=== PATIENT | male | born 1970 | race Caucasian/White ===

== ENCOUNTER 2016-12-10 06:35 | Emergency (ER) | payer OTHER ==
[~2016-12-10] VITALS: Ht 177.8 cm; Wt 99.3 kg
[2016-12-10 06:36] VITALS: TEMP 36.8; O2SAT 97; Ht 177.8 cm; Wt 99.3 kg
[2016-12-10] MEDS ORDERED: SODIUM CHLORIDE 0.9% 1000ML 1,000 ML IV STA ×2 (06:59→08:29)
[2016-12-10] MEDS ORDERED: ONDANSETRON INJ 2 MG/ML 2 ML VIAL IV STA (06:59)
[2016-12-10] MEDS ORDERED: MoRPHine SULFATE 10 MG/ML CARP/VIAL IV STA ×2 (06:59→08:12)
[2016-12-10 07:24] LABS: BASO % 0.2 %; BASO ABS # 0.02 K/uL (0-0.2); COMPLETE YES; EOS % 1.2 %; HEMATOCRIT 42.5 % (42-52); IG% 0.3 %; LYMPH % 32.7 %; LYMPH ABS # 3.38 K/uL (1.2-3.4); MEAN CELL VOLUME 84.5 fL (80-100); MEAN CORPUSCULAR HEMOGLOBIN 31.2 pg (25-34); MEAN CORPUSCULAR HGB CONC 36.9 g/dl (32-36); MEAN PLATELET VOLUME 9.3 fL (7.4-10.4); MONO % 10.1 %; NEUT % 55.5 %; PLATELET COUNT 225 K/uL (130-400); RED BLOOD COUNT 5.03 M/uL (4.7-6.1); WHITE BLOOD COUNT 10.33 K/uL (4.8-10.8)
[2016-12-10 07:48] LABS: ALT/SGPT 62 U/L (12-78); AST/SGOT 39 U/L (15-37); BLOOD UREA NITROGEN 21 mg/dl (7-18); BUN/CREATININE RATIO 15.8 (10-20); CALCIUM 8.8 mg/dl (8.5-10.1); CARBON DIOXIDE 23 mmol/L (21-32); CHLORIDE 105 mmol/L (98-107); GLUCOSE 108 mg/dl (70-99); POTASSIUM 3.6 mmol/L (3.5-5.1); SODIUM 137 mmol/L (136-145)
[2016-12-10 07:51] LABS: ALKALINE PHOSPHATASE 83 U/L (45-117)
--- NOTE | 2016-12-10 08:10 | DIAGNOSTIC IMAGING REPORT ---
CT SCAN OF THE ABDOMEN AND PELVIS WITHOUT IV CONTRAST CLINICAL HISTORY: Left lower quadrant abdominal pain. COMPARISON STUDY: No priors. TECHNIQUE: CT scan of the abdomen and pelvis is performed from the lung bases to the proximal femora. Images are reviewed in the axial, sagittal, and coronal planes. IV contrast was not administered for this examination as per the referring clinician. A dose lowering technique was utilized adhering to the principles of ALARA. CT DOSE: 989.93 mGy.cm FINDINGS: Lung bases: The heart is normal in size and without pericardial effusion. The lung bases are clear. There is a tiny hiatal hernia. Liver: The unenhanced liver is normal in size, contour, and attenuation. There is no intrahepatic biliary ductal dilatation. Gallbladder: Unremarkable. Spleen: Normal in size and attenuation. Pancreas: The unenhanced pancreas is grossly unremarkable. Adrenal glands: Unremarkable. Kidneys: The unenhanced kidneys are normal in size size. There is a 3 mm obstructing calculus at the left vesicoureteral junction seen on image #397. This causes mild to moderate left-sided hydroureteronephrosis. There is associated left-sided perinephric and periureteric stranding as well as trace left-sided perinephric fluid. An additional 4 mm nonobstructing calculus is seen in the interpolar left kidney. There is a 5 mm nonobstructing right renal calculus. No right sciatica hydronephrosis is seen. There is no evidence of contour deforming renal mass lesion. Abdominal vasculature: The abdominal aorta is normal in course and caliber noting mild but age advanced atherosclerotic calcification. Bowel: The small bowel and colon are normal in course and caliber. The appendix is well-visualized and normal. Peritoneum: There is no intraperitoneal free air or abdominal ascites. There is a fat-containing umbilical hernia. Lymphadenopathy: None. Pelvic viscera: The bladder, prostate, and seminal vesicles are normal as visualized. There is a small fat-containing left inguinal hernia. Skeletal structures: No lytic or blastic lesions are seen. IMPRESSION: 1. There is a 3 mm obstructing calculus at the left vesicoureteral junction which causes mild to moderate left-sided hydroureteronephrosis. 2. Additional bilateral nonobstructing renal calculi as above. Electronically signed by: Rudolph Acuña M.D. 12/10/2016 8:08 AM Dictated Date/Time: 12/10/2016 8:04 AM
[2016-12-10] MEDS ORDERED: KETOROLAC TROMETHAMINE 30 MG/ML VIAL IV STA (08:12)
[2016-12-10 08:26] VITALS: PULSE 80
[2016-12-10 08:52] LABS: URINE APPEARANCE CLEAR (CLEAR); URINE BILIRUBIN NEG (NEG); URINE COLOR YELLOW; URINE EPITHELIAL CELL AUTO 0-5 /lpf (0-5); URINE NITRITE NEG (NEG); URINE SPECIFIC GRAVITY 1.023 (1.000-1.030); UROBILINOGEN NEG (NEG); ZZUR CULT IF INDIC CLEAN CATCH NO
[2016-12-10 08:53] LABS: MANUAL MICROSCOPIC REQUIRED? NO; REVIEW REQ? NO
[2016-12-10] MEDS ORDERED: TAMS0.4C38 PO (09:06)
[2016-12-10] MEDS ORDERED: OXYC1TAB3 PO (09:06)
[2016-12-10 10:17] VITALS: BP 155/90
--- NOTE | 2016-12-10 13:26 | EMERGENCY ROOM VISIT NOTE ---
History Report prepared by Shruthi: Klarissa Mcqueen Under the Supervision of: Dr. Armin Sands D.O. First contact with patient: 06:47 Chief Complaint: ABDOMINAL PAIN Stated Complaint: LEFT LOWER ABDOMINAL PAIN Nursing Triage Summary: Drove up from [place], got in at 2400. Woke at 0530 with sharp LLQ abdominal pain, non-radiating, severe. No diarrhea or vomiting, but nauseated. No recent illness. No dyspnea, lightheadedness, or dizziness. Normal BM's recently. History of Present Illness The patient is a 46 year old male who presents to the Emergency Room with complaints of constant LLQ abdominal pain for the past 1.5 hours. The patient is visiting the area from [place] and staying at [place]. He woke up at 5am with what he describes as "gas pains" in his LLQ. He tried to have a bowel movement but was unsuccessful. His pain began to worsen and he developed nausea. The patient called 911 and was brought to the ED by ambulance. He rates his current pain as a 9/10 in severity. The patient denies fevers, headache, cough, rhinorrhea, chest pain, vomiting, testicular pain, and urinary symptoms. He had a normal bowel movement yesterday. He has a history of kidney stones, but states that his current symptoms feel different from his previous kidney stones. Source of History: patient Onset: 1.5 hours [employer] Position: abdomen (LLQ) Symptom Intensity: 9/10 Timing: constant Associated Symptoms: + nausea, No fevers, No headache, No cough, No chest pain, No vomiting, No urinary symptoms Note: Pt denies rhinorrhea and testicular pain. Review of Systems See HPI for pertinent positives & negatives. A total of 10 systems reviewed and were otherwise negative. Past Medical & Surgical Medical Problems: (1) Kidney stones Family History No pertinent history stated. Social History Smoking Status: Never Smoker Marital Status: Current/Historical Medications Scheduled Tamsulosin Hcl (Flomax), 0.4 MG PO DAILY Scheduled PRN Oxycodone Immediate Rel Tab (Roxicodone Ir), 5 MG PO Q6H PRN for Pain Allergies Coded Allergies: No Known Allergies (Unverified , 12/10/16) Physical Exam Vital Signs Date Time Temp Pulse Resp B/P (MAP) Pulse Ox O2 Delivery O2 Flow Rate FiO2 12/10/16 10: 155/90 12/10/16 08:26 80 163/95 12/10/16 07:00 71 12/10/16 06:36 36.8 68 15 171/95 97 Room Air Physical Exam GENERAL: alert, sitting up in bed, well appearing, well nourished, moderate distress holding LLQ, non-toxic EYE EXAM: normal conjunctiva, PERRL and EOM's grossly intact OROPHARYNX: no exudate, no erythema, lips, buccal mucosa, and tongue normal and mucous membranes are moist NECK: supple, no nuchal rigidity, no adenopathy, non-tender LUNGS: Clear to auscultation. Normal chest wall mechanics HEART: no murmurs, S1 normal and S2 normal ABDOMEN: abdomen soft, faint tenderness in LLQ, normo-active bowel sounds, no masses, no rebound or guarding. BACK: Back is symmetrical on inspection and there is no deformity, no midline tenderness, no CVA tenderness. SKIN: no rashes and no bruising UPPER EXTREMITIES: upper extremities are grossly normal. LOWER EXTREMITIES: No pitting edema. NEURO EXAM: Normal sensorium, cranial nerves II-XII grossly intact, normal speech, no gross weakness of arms, no gross weakness of legs. Medical Decision & Procedures ER Provider Diagnostic Interpretation: Radiology results as stated below per my review and the radiologist's interpretation: CT SCAN OF THE ABDOMEN AND PELVIS WITHOUT IV CONTRAST CLINICAL HISTORY: Left lower quadrant abdominal pain. COMPARISON STUDY: No priors. TECHNIQUE: CT scan of the abdomen and pelvis is performed from the lung bases to the proximal femora. Images are reviewed in the axial, sagittal, and coronal planes. IV contrast was not administered for this examination as per the referring clinician. A dose lowering technique was utilized adhering to the principles of ALARA. CT DOSE: 989.93 mGy.cm FINDINGS: Lung bases: The heart is normal in size and without pericardial effusion. The lung bases are clear. There is a tiny hiatal hernia. Liver: The unenhanced liver is normal in size, contour, and attenuation. There is no intrahepatic biliary ductal dilatation. Gallbladder: Unremarkable. Spleen: Normal in size and attenuation. Pancreas: The unenhanced pancreas is grossly unremarkable. Adrenal glands: Unremarkable. Kidneys: The unenhanced kidneys are normal in size size. There is a 3 mm obstructing calculus at the left vesicoureteral junction seen on image #397. This causes mild to moderate left-sided hydroureteronephrosis. There is associated left-sided perinephric and periureteric stranding as well as trace left-sided perinephric fluid. An additional 4 mm nonobstructing calculus is seen in the interpolar left kidney. There is a 5 mm nonobstructing right renal calculus. No right sciatica hydronephrosis is seen. There is no evidence of contour deforming renal mass lesion. Abdominal vasculature: The abdominal aorta is normal in course and caliber noting mild but age advanced atherosclerotic calcification. Bowel: The small bowel and colon are normal in course and caliber. The appendix is well-visualized and normal. Peritoneum: There is no intraperitoneal free air or abdominal ascites. There is a fat-containing umbilical hernia. Lymphadenopathy: None. Pelvic viscera: The bladder, prostate, and seminal vesicles are normal as visualized. There is a small fat-containing left inguinal hernia. Skeletal structures: No lytic or blastic lesions are seen. IMPRESSION: 1. There is a 3 mm obstructing calculus at the left vesicoureteral junction which causes mild to moderate left-sided hydroureteronephrosis. 2. Additional bilateral nonobstructing renal calculi as above. Electronically signed by: Rudolph Acuña M.D. 12/10/2016 8:08 AM Dictated Date/Time: 12/10/2016 8:04 AM Laboratory Results 12/10/16 07:10 Red Blood Count 5.03, Mean Corpuscular Volume 84.5, Mean Corpuscular Hemoglobin 31.2, Mean Corpuscular Hemoglobin Concent 36.9, Mean Platelet Volume 9.3, Neutrophils (%) (Auto) 55.5, Lymphocytes (%) (Auto) 32.7, Monocytes (%) (Auto) 10.1, Eosinophils (%) (Auto) 1.2, Basophils (%) (Auto) 0.2, Neutrophils # (Auto ) 5.74, Lymphocytes # (Auto) 3.38, Monocytes # (Auto) 1.04, Eosinophils # (Auto ) 0.12, Basophils # (Auto) 0.02 12/10/16 07:10 Test 12/10/16 07:10 12/10/16 08:35 White Blood Count 10.33 K/uL (4.8-10.8) Red Blood Count 5.03 M/uL (4.7-6.1) Hemoglobin 15.7 g/dL (14.0-18.0) Hematocrit 42.5 % (42-52) Mean Corpuscular Volume 84.5 fL (80-100) Mean Corpuscular Hemoglobin 31.2 pg (25-34) Mean Corpuscular Hemoglobin Concent 36.9 g/dl (32-36) Platelet Count 225 K/uL (130-400) Mean Platelet Volume 9.3 fL (7.4-10.4) Neutrophils (%) (Auto) 55.5 % Lymphocytes (%) (Auto) 32.7 % Monocytes (%) (Auto) 10.1 % Eosinophils (%) (Auto) 1.2 % Basophils (%) (Auto) 0.2 % Neutrophils # (Auto) 5.74 K/uL (1.4-6.5) Lymphocytes # (Auto) 3.38 K/uL (1.2-3.4) Monocytes # (Auto) 1.04 K/uL (0.11-0.59) Eosinophils # (Auto) 0.12 K/uL (0-0.5) Basophils # (Auto) 0.02 K/uL (0-0.2) RDW Standard Deviation 37.2 fL (36.4-46.3) RDW Coefficient of Variation 12.2 % (11.5-14.5) Immature Granulocyte % (Auto) 0.3 % Immature Granulocyte # (Auto) 0.03 K/uL (0.00-0.02) Anion Gap 9.0 mmol/L (3-11) Est Creatinine Clear Calc Drug Dose 85.7 ml/min Estimated GFR () 76.9 Estimated GFR (Non- 66.4 BUN/Creatinine Ratio 15.8 (10-20) Calcium Level 8.8 mg/dl (8.5-10.1) Total Bilirubin 0.6 mg/dl (0.2-1) Direct Bilirubin < 0.1 mg/dl (0-0.2) Aspartate Amino Transf (AST/SGOT) 39 U/L (15-37) Alanine Aminotransferase (ALT/SGPT) 62 U/L (12-78) Alkaline Phosphatase 83 U/L (45-117) Total Protein 7.7 gm/dl (6.4-8.2) Albumin 4.1 gm/dl (3.4-5.0) Lipase 146 U/L (73-393) Urine Color YELLOW Urine Appearance CLEAR (CLEAR) Urine pH 6.0 (4.5-7.5) Urine Specific Stickney 1.023 (1.000-1.030) Urine Protein NEG (NEG) Urine Glucose (UA) NEG (NEG) Urine Ketones 2+ (NEG) Urine Occult Blood NEG (NEG) Urine Nitrite NEG (NEG) Urine Bilirubin NEG (NEG) Urine Urobilinogen NEG (NEG) Urine Leukocyte Esterase NEG (NEG) Urine WBC (Auto) 1-5 /hpf (0-5) Urine RBC (Auto) 0-4 /hpf (0-4) Urine Hyaline Casts (Auto) 1-5 /lpf (0-5) Urine Epithelial Cells (Auto) 0-5 /lpf (0-5) Urine Bacteria (Auto) NEG (NEG) Laboratory results per my review. Medications Administered Medications (Trade) Dose Ordered Sig/Rodo Route Start Time Stop Time Status Last Admin Dose Admin Sodium Chloride 1,000 ml @ 999 mls/hr Q1H1M STAT IV 12/10/16 06:59 12/10/16 07:59 DC 12/10/16 07:15 999 MLS/HR Ondansetron HCl (Zofran Inj) 4 mg NOW STAT IV 12/10/16 06:59 12/10/16 07:00 DC 12/10/16 07:12 4 MG Morphine Sulfate (MoRPHine SULFATE INJ) 6 mg NOW STAT IV 12/10/16 06:59 12/10/16 07:00 DC 12/10/16 07:15 6 MG Morphine Sulfate (MoRPHine SULFATE INJ) 6 mg NOW STAT IV 12/10/16 08:12 12/10/16 08:13 DC 12/10/16 08:18 6 MG Ketorolac Tromethamine (Toradol Inj) 30 mg NOW STAT IV 12/10/16 08:12 12/10/16 08:13 DC 12/10/16 08:18 30 MG Sodium Chloride 1,000 ml @ 999 mls/hr Q1H1M STAT IV 12/10/16 08:29 12/10/16 09:29 DC 12/10/16 08:29 999 MLS/HR ED Course ED COURSE: Vital signs were reviewed and showed hypertensive. The patients medical record was reviewed The above diagnostic studies were performed and reviewed. ED treatments and interventions as stated above. 0640: The patient was evaluated in room A10. A complete history and physical examination was performed. 0659: Morphine sulfate 6 mg IV, Zofran 4 mg IV, NSS 1000 ml @ 999 mls/hr IV 0812: Toradol 30 mg IV, Morphine sulfate 6 mg IV 0827: I updated the patient. He is doing well and is much more comfortable. 0829: NSS 1000 ml @ 999 mls/hr IV 0916: Upon reevaluation, the patient is feeling better and resting comfortably. He would like to go home. I discussed my findings with the patient and he understands and agrees with the treatment plan. Based on the patients age, coexisting illnesses, exam and lab findings the decision to treat as an outpatient was made. The patient remained stable while under my care. The patient appeared well at the time of discharge. Medical Decision Differential diagnoses includes but is not limited to gastritis, peptic ulcer disease, GERD, gallbladder disease, pancreatitis, small bowel obstruction, acute coronary syndrome, pericarditis, ischemic bowel, irritable bowel disease, irritable bowel syndrome, appendicitis, diverticulitis, malignancy, hernia, urinary tract infection, torsion, perforation, trauma, infectious. Medication Reconciliation: I attest that I have personally reviewed the patient' s current medication list. Blood Pressure Screening: The patient was found to have a slightly elevated blood pressure due to circumstances. I do not believe that the patient requires hypertension monitoring. Patient is a 46-year-old male that presents to ER for left lower quadrant abdominal pain. He has a past medical history of kidney stones but notes that this does not feel the same. He does admit to nausea. No fevers. CBC all BMP , LFTs, bilirubin lipase is unremarkable. UA shows 4 RBCs. No signs of infection. CT abdomen and pelvis shows mild hydronephrosis with a 3 mm distal ureteral stone. Patient was given IV narcotics 2 and felt significant better. He was discharged resting comfortably to follow-up with PCP and urology as an outpatient. PDMP was reviewed and unremarkable. Discussed with Pt concerning signs and symptoms to watch out for. Pt was instructed to follow up with their PCP and discussed with the patient their option to return to the ED at anytime for persistent or worsening symptoms. The appropriate anticipatory guidance and out-patient management, including indications for return to the emergency department, were explained at length to the patient and understood. [place] Drug Monitoring Program Search Results: patient reviewed within database, no issues identified Impression Primary Impression: Renal colic on left side Additional Impression: Hydronephrosis Scribe Attestation The scribe's documentation has been prepared under my direction and personally reviewed by me in its entirety. I confirm that the note above accurately reflects all work, treatment, procedures, and medical decision making performed by me. Departure Information Dispostion Home / Self-Care Prescriptions Tamsulosin Hcl (FLOMAX) 0.4 Mg Cap 0.4 MG PO DAILY, #10 CAP Prov: Armin Sands, DO 12/10/16 Oxycodone Immediate Rel Tab (ROXICODONE IR) 5 Mg Tab 5 MG PO Q6H Y for Pain, #14 TAB Prov: Armin Sands, DO 12/10/16 Referrals No Doctor, Assigned Forms Call Back Authorization, HOME CARE DOCUMENTATION FORM, IMPORTANT VISIT INFORMATION Patient Instructions My [facility] Additional Instructions Please follow up with your primary care doctor with in the next 24 hours. Any worsening of your symptoms, please return to the ED immediately. This includes any fevers greater than 100.4, worsening pain, chest pain, shortness breath, persistent nausea, vomiting, unable to eat or drink, or any other concerning signs or symptoms from your standpoint. You were given medications during this visit that will inhibit your ability to drive, operate machinery and work. Please do NOT drive, operate machinery or work for the next 12hrs. You were also given a prescription for a narcotic. While taking this medication you should also not drive, operate machinery and or work. Please follow up with urology within the next weeks. Problem Qualifiers
== END 2016-12-10 10:19 | disposition home or self-care (01) ==
LOC: EDBD 06:35 → C.EDA 06:38
DX: N23 Unspecified renal colic (principal); N13.30 Unspecified hydronephrosis; Z87.442 Personal history of urinary calculi